=== PATIENT | male | born 1995 | race African-American/Black ===

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

== ENCOUNTER 2017-06-26 16:48 | Emergency (ER) | payer MEDICAID ==
[~2017-06-26 16:48] MED LIST changes: +BACT800T5 PO; +CEPH-460 PO; +IBUP1TAB7 PO
[2017-06-26 16:50] VITALS: BP 132/59; PULSE 65; RESP 12; TEMP 98.6; O2SAT 100
[2017-06-26 17:31] LABS: BLOOD, URINE TRACE (NEG); COMMENT (UR) CULTURE INDICATED; CULTURE IF INDICATED CULTURE INDICATED; GLUCOSE,URINE NEG (NEG); KETONE, URINE NEG (NEG); MUCUS URINE FEW /lpf (OCC); NITRITE,URINE NEG (NEG); PH, URINE 6.5 (5.0-8.5); URINE COLOR YELLOW (YELLW/STRAW)
--- NOTE | 2017-06-26 17:32 | PD ---
HPI Chief Complaint: Complaint Time Seen by Provider: 17:31 Travel History International Travel<30 days: No Contact w/Intl Traveler<30days: No Traveled to known affect area: No History of Present Illness HPI 22 y male presents to emergency department complaining of penile discharge since this morning. States that the discharge is yellow. States he does have some dysuria when initiating urination, does not have pain with ejaculation. Also denies penile or groin lesions, rash, scrotal or groin pain. States that he has had one partner (non sex worker) and he has advised her to seek treatment. Denies fever, chills, nausea, vomiting, diarrhea, abdominal pain. Patient has not sought any other care at this point for this problem. 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 SKIN: Focused skin assessment warm/dry. HEAD: Normocephalic. EYES: No scleral icterus. No injection or drainage. NECK: Supple, trachea midline. No JVD or lymphadenopathy. CARDIOVASCULAR: Regular rate and rhythm without murmurs, gallops, or rubs. RESPIRATORY: Breath sounds equal bilaterally. No accessory muscle use. GASTROINTESTINAL: Abdomen soft, non-tender, nondistended. Genitals- deferred. Patient refused exam. MUSCULOSKELETAL: No cyanosis, or edema. BACK: Nontender without obvious deformity. No CVA tenderness. Data Data Last Documented VS Vital Signs Date Time Temp Pulse Resp B/P (MAP) Pulse Ox O2 Delivery O2 Flow Rate FiO2 06/26/17 18:28 06/26/17 16:50 98.6 65 12 100 Orders Orders Urinalysis - C+S If Indicated (06/26/17 17:04) Gc And Chlamydia Pcr (06/26/17 17:04) Urine Culture (06/26/17 17:11) Ceftriaxone Inj (Rocephin Inj) (06/26/17 17:45) Azithromycin (Zithromax) (06/26/17 17:45) Ondansetron Odt (Zofran Odt) (06/26/17 17:45) Ed Discharge Order (06/26/17 17:43) Labs Laboratory Tests Test 06/26/17 17:11 Urine Color YELLOW Urine Turbidity HAZY Urine pH 6.5 Urine Specific [place] 1.029 Urine Protein TRACE mg/dL Urine Glucose (UA) NEG mg/dL Urine Ketones NEG mg/dL Urine Occult Blood TRACE Urine Nitrite NEG Urine Bilirubin NEG Urine Urobilinogen 2.0 MG/DL Urine Leukocyte Esterase LARGE Urine RBC 17 /hpf Urine WBC 115 /hpf Urine Amorphous Sediment RARE Urine Mucus FEW /lpf Microscopic Urinalysis Comment CULTURE INDICATED Chlamydia trachomatis DNA (PCR) NOT DETECTED Neisseria gonorrhoeae DNA (PCR) DETECTED MDM Medical Decision Making Medical Screen Exam Complete: Yes Emergency Medical Condition: Yes Differential Diagnosis UTI versus gonorrhea versus chlamydia Narrative Course 22 y male presents to emergency department complaining of penile discharge since this morning. States that the discharge is yellow. States he does have some dysuria when initiating urination, does not have pain with ejaculation. Also denies penile or groin lesions, rash, scrotal or groin pain. States that he has had one partner (non sex worker) and he has advised her to seek treatment. Denies fever, chills, nausea, vomiting, diarrhea, abdominal pain. Patient has not sought any other care at this point for this problem. Vital signs stable UA demonstrates large amounts of white blood cells and leukocyte esterase. Likely contamination from an STI. Advised patient that the remaining tests will not return for another 2 days or so. Advised he will receive a letter in the mail. Treat for gonorrhea/Chlamydia. Azithromycin 1 g, ceftriaxone 250 mg IM. Administer Zofran for potential nausea or vomiting the patient would experience with this medication. Patient tolerated well and understood treatment plan. Advised he should follow- up with his primary care physician or health department for further evaluation. Diagnosis Primary Impression: Urethritis Referrals: Primary Care Physician Additional Instructions: Physical medication as prescribed. Follow-up with your primary care physician within 2-3 days. If your symptoms persist or worsen return to the emergency department. Ensure all partners are treated as well. Disposition: 01 DISCHARGE HOME Condition: Stable Whitney Sauceda Jun 26, 2017 17:32
[2017-06-26] MEDS ORDERED: ONDANSETRON ODT 4 MG TAB PO ONE (17:45)
[2017-06-26] MEDS ORDERED: AZITHROMYCIN 250 MG TAB PO ONE (17:45)
[2017-06-26] MEDS ORDERED: cefTRIAXone 250 MG VIAL IM ONE (17:45)
[2017-06-26 21:54] LABS: CHLAMYDIA PCR NOT DETECTED (NOT DETECT); NEISSERIA PCR DETECTED (NOT DETECT)
== END 2017-06-26 18:29 | disposition home or self-care (01) ==
LOC: NEPK 16:48
DX: N34.2 Other urethritis (principal)
CPT/HCPCS: 81001; 87086; 87491; 87591; 96372; 99284; J0696

== ENCOUNTER 2018-01-19 19:03 | Emergency (ER) | payer MEDICAID ==
[2018-01-19 19:32] VITALS: BP 121/64; PULSE 45; RESP 18; TEMP 98.3; O2SAT 99
--- NOTE | 2018-01-19 19:53 | PD ---
HPI Chief Complaint: Complaint Time Seen by Provider: 19:46 Travel History International Travel<30 days: No Contact w/Intl Traveler<30days: No Traveled to known affect area: No History of Present Illness HPI 22-year-old male complains of urethral discharge. Patient states that he started having urethral discharge since yesterday. Patient had unprotected sex recently. Patient denies any fever chills. Patient denies any back pain. 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 Reported Meds & Prescriptions Reported Meds & Active Scripts Active Ibuprofen 800 Mg Tab 800 Mg PO Q6HR PRN Bactrim DS (Sulfamethoxazole-Trimethoprim) 800-160 Mg Tab 1 Tab PO BID 10 Days Keflex (Cephalexin) 500 Mg Cap 500 Mg PO Q6H 10 Days Keflex (Cephalexin Monohydrate) 500 Mg Cap 500 Mg PO QID 7 Days Review of Systems General / Constitutional: No: Fever Eyes: No: Visual changes HENT: No: Headaches Cardiovascular: No: Chest Pain or Discomfort Respiratory: No: Shortness of Breath Gastrointestinal: No: Abdominal Pain Genitourinary: Positive: Discharge, No: Dysuria Musculoskeletal: No: Pain Skin: No Rash Neurologic: No: Weakness Psychiatric: No: Depression Endocrine: No: Polydipsia Hematologic/Lymphatic: No: Easy Bruising Physical Exam Narrative GENERAL: Well-nourished, well-developed patient. SKIN: Focused skin assessment warm/dry. HEAD: Normocephalic. EYES: No scleral icterus. No injection or drainage. NECK: Supple, trachea midline. No JVD or lymphadenopathy. CARDIOVASCULAR: Regular rate and rhythm without murmurs, gallops, or rubs. RESPIRATORY: Breath sounds equal bilaterally. No accessory muscle use. GASTROINTESTINAL: Abdomen soft, non-tender, nondistended. MUSCULOSKELETAL: No cyanosis, or edema. BACK: Nontender without obvious deformity. No CVA tenderness. exam: Patient has yellowish greenish thick discharge from the urethra. No penile lesion noted. No tenderness on palpation of testicle. Data Data Last Documented VS Vital Signs Date Time Temp Pulse Resp B/P (MAP) Pulse Ox O2 Delivery O2 Flow Rate FiO2 01/19/18 19:32 98.3 45 18 121/64 (83) 99 Orders Orders Azithromycin Powd Pack (Zithromax Powd P (01/19/18 20:00) Ceftriaxone Inj (Rocephin Inj) (01/19/18 20:00) Sodium Chloride 0.9% Flush (Ns Flush) (01/19/18 20:00) MDM Medical Decision Making Medical Screen Exam Complete: Yes Emergency Medical Condition: Yes Differential Diagnosis Differential diagnoses including GC, chlamydia, trichomonas. Narrative Course 22-year-old male with urethral discharge. Typical of GC. Rocephin 250 mg IM. Zithromax 1 g p.o. Diagnosis Primary Impression: Urethritis Patient Instructions: General Instructions Additional Instructions: Advised patient to follow up with local physician. Advised partner to be treated also. Med/Other Pt SpecificInfo: No Meds Exist/No RX given Disposition: 01 DISCHARGE HOME Condition: Stable Prabhjot Keyes MD Jan 19, 2018 19:53
[2018-01-19] MEDS ORDERED: AZITHROMYCIN PWD FOR SUSP 1 GM PACKET PO ONE (20:00)
[2018-01-19] MEDS ORDERED: SODIUM CHLORIDE 0.9% FLUSH 10 ML FLUSH IVF PRN (20:00)
[2018-01-19] MEDS ORDERED: cefTRIAXone 250 MG VIAL IM ONE (20:00)
== END 2018-01-19 20:52 | disposition home or self-care (01) ==
LOC: NEPD 19:03
DX: N34.2 Other urethritis (principal)
CPT/HCPCS: 96372; 99283; J0696